=== PATIENT | female | born 1985 | race American Indian/Alaskan Native ===

== ENCOUNTER 2020-07-23 10:00 | Outpatient (CLI) | payer OTHER ==
[2020-07-23 09:47] LABS: Hemoglobin 9.5 gm/dl (10.1-14.3); Mean Corpuscular HGB Conc 31 % (30-34); Platelet Count 384 K/mm3 (140-440); Red Cell Distribution Width 18.5 % (13.2-15.2)
[2020-07-23 09:48] LABS: Mean Corpuscular Volume 65 fl (79-97)
[2020-07-23 11:29] VITALS: BP 132/84
--- NOTE | 2020-07-23 19:44 | Anesthesia Consultation ---
Anesthesia Consult and Med Hx Date of service: 07/24/20 - Airway Anesthetic Teeth Evaluation: Good ROM Head & Neck: Adequate Mental/Hyoid Distance: Adequate Mallampati Class: Class II Intubation Access Assessment: Probably Good - Pulmonary Exam CTA: Yes - Cardiac Exam Cardiac Exam: RRR - Pre-Operative Health Status ASA Pre-Surgery Classification: ASA2 Proposed Anesthetic Plan: General - Pulmonary Hx Smoking: Yes Hx Asthma: Yes (no recent exacerbations) Hx Respiratory Symptoms: No - Cardiovascular System Hx Hypertension: No Hx Heart Attack/AMI: No - Central Nervous System Hx Seizures: Yes (remote hx; no anti-seizure medications) Hx Psychiatric Problems: No - Gastrointestinal Hx Gastroesophageal Reflux Disease: No - Endocrine Hx Renal Disease: No Hx Liver Disease: No Hx Insulin Dependent Diabetes: No Hx Non-Insulin Dependent Diabetes: No Hx Thyroid Disease: No - Hematic Hx Anemia: Yes (remote hx transfusions) - Other Systems Hx Substance Use: Yes (THC) Hx Cancer: Yes (hx cervical ca) Hx Obesity: Yes (BMI 33) - Additional Comments Anesthesia Medical History Comments: No hx anesthetic complications.
[2020-07-24] MEDS ORDERED: GABAPENTIN 300 MG CAP PO NR (06:00)
[2020-07-24] MEDS ORDERED: MIDAZOLAM 2 MG/2 ML INJ IV NR (06:00)
[2020-07-24] MEDS ORDERED: LACTATED RINGERS 1,000 ML IV SCH (06:00)
[2020-07-24] MEDS ORDERED: CELECOXIB 200 MG CAP PO NR (06:00)
== END 2020-07-23 12:00 | disposition home or self-care (01) ==
LOC: LAB 10:00 → EDSTATUS 07-24 13:30
PROVIDERS: ATTEND Obstetrics & Gynecology
DX: Z01.818 Encounter for other preprocedural examination (principal); R10.2 Pelvic and perineal pain
CPT/HCPCS: 36415; 84703; 85027; U0003; J7120

== ENCOUNTER 2020-08-07 06:04 | Day surgery (SDC) | payer OTHER ==
[2020-08-07] MEDS ORDERED: LACTATED RINGERS 1,000 ML IV SCH (06:26)
[2020-08-07] MEDS ORDERED: BACTERIOSTATIC SODIUM CHLORIDE 0.9% 30 ML VIAL INFILTRATI ONE (06:34)
[2020-08-07] MEDS ORDERED: HYDROmorphone 1 MG/1 ML INJ IV PRN ×2 (07:16)
[2020-08-07] MEDS ORDERED: ONDANSETRON 4 MG/2 ML INJ IV PRN (07:16)
[2020-08-07] MEDS ORDERED: MAGNESIUM OXIDE 400 MG TAB PO ONE (07:17)
[2020-08-07] MEDS ORDERED: ACETAMINOPHEN 500 MG TAB PO ONE (07:17)
--- NOTE | 2020-08-07 07:18 | Anesthesia Day of Surgery ---
Anesthesia Day of Surgery - Day of Surgery Patient Examined: Yes Patient H&P Reviewed: Yes Patient is NPO: Yes
[2020-08-07] MEDS ORDERED: HYDROmorphone 1 MG/1 ML INJ ONE ×2 (07:46→08:31)
[2020-08-07] MEDS ORDERED: propofoL 200 MG/20 ML VIAL IV ONE (07:48)
[2020-08-07] MEDS ORDERED: ONDANSETRON 4 MG/2 ML INJ ONE (07:49)
[2020-08-07] MEDS ORDERED: NEOSTIGMINE 10MG/10 ML INJ MDV ONE (07:49)
[2020-08-07] MEDS ORDERED: GLYCOPYRROLATE 0.4 MG/2 ML INJ ONE (07:49)
[2020-08-07] MEDS ORDERED: dexAMETHasone 20 MG/5 ML VIAL ONE (07:49)
[2020-08-07] MEDS ORDERED: PHENYLEPHRINE/NS 1,000 MCG/10 ML SYRINGE (OR USE) IV ONE ×2 (07:49→07:50)
[2020-08-07] MEDS ORDERED: LIDOCAINE MPF (2%) 20 MG/1 ML VIAL 5 ML ONE (07:49)
[2020-08-07] MEDS ORDERED: SUCCINYLCHOLINE CHLORIDE 200 MG/10 ML INJ MDV ONE (07:49)
[2020-08-07] MEDS ORDERED: ROCURONIUM 50 MG/5 ML INJ IV ONE (07:49)
[2020-08-07] MEDS ORDERED: ceFAZolin/Water 2 GM/20 ML 2 GM/20 ML SYRINGE IV ONE (07:51)
[2020-08-07] MEDS ORDERED: MIDAZOLAM 2 MG/2 ML INJ IV NR (08:00)
[2020-08-07] MEDS ORDERED: ceFAZolin/STERILE WATER 2 GM/20 ML SYRINGE IV NR (08:00)
[2020-08-07] MEDS ORDERED: CELECOXIB 200 MG CAP PO NR (08:00)
[2020-08-07] MEDS ORDERED: GABAPENTIN 300 MG CAP PO NR (08:00)
--- NOTE | 2020-08-07 08:08 | Operative Report ---
Operative Report Operative Report: Preoperative diagnosis: Pelvic pain Postoperative diagnosis: Same Procedure: Diagnostic laparoscopy Surgeon: Dr. Wendy Masters Anesthesia: GET Complications: None EBL less than 50 mL IV fluids: 500 mL Urine output: 400 mL clear Drain: None Findings: 12-week size uterus, bilateral fallopian tubes that had been suture- ligated, bilateral ovaries within normal limits, no abdominal pelvic adhesions. There were no Falope-Rings identified. Procedure: Patient was consented in preop holding about risks benefits possible complications as well as alternatives to the procedure. After informed consent was obtained patient was taken to the operating room. She received excellent general endotracheal anesthesia and with no complication. She was then placed in the dorsal lithotomy position, prepped and draped in a sterile fashion. A timeout was verified, a Wan catheter was placed atraumatically. A speculum was placed in the vaginal vault, the parametria was noted to be pink with no masses lesions or nodularity. The cervix was identified, grasped with a single- tooth tenaculum, and an acorn uterine manipulator was placed atraumatically. Attention then turned to the abdomen. An umbilical incision was made with a scalpel, taken down to the fascia which was incised sharply atraumatically. 2 [id number] sutures were placed at the apex of the incision to allow for anchoring of the Pearson trocar. The Pearson trocar was then introduced into the abdomen atraumatically. Correct placement of the trocar was confirmed under direct visualization. The patient was placed in steep Trendelenburg. A second incision was made in the left lower quadrant, a 5 mm trocar was introduced atraumatically into the abdomen. An atraumatic grasper was placed in the 5 mm trocar port to allow for retraction and visualization. The uterus was noted to be approximately 12 weeks size, there were no abdominal pelvic adhesions or Falope-Rings identified. Both ovaries were normal, both fallopian tubes had been suture-ligated and what appears to be a modified Alfreda procedure. Intraoperative pictures were taken both for the permanent record and for the patient's own benefit in the outpatient setting. At the completion of the procedure both trochars were removed atraumatically under direct visualization. The fascia was closed with 0 Vicryl, the skin closed with Monocryl. Pressure dressings were applied at both incision sites. The uterine manipulator and speculum were removed from the cervix and the vagina respectively. The Wan catheter was removed. The patient was extubated and taken to the recovery area in stable condition. Her family was notified of her stable condition immediate ly following the completion of the procedure. There were no complications. EBL less than 50 mL. All sponge needle and instrument counts were correct x2. Escobar Masters MD
[2020-08-07] MEDS ORDERED: WATER FOR INJ Sterile (PF) 10 ML ONE (08:56)
[2020-08-07] MEDS ORDERED: SUGAMMADEX SODIUM 200 MG/2 ML VIAL IV ONE (08:56)
--- NOTE | 2020-08-07 09:41 | Post Anesthesia Evaluation ---
- Post Anesthesia Evaluation Patient Participated: Yes Airway Patent: Yes Stable Respiratory Function: Yes Nausea/Vomiting: No Temp > 96.8F: Yes Pain Manageable: Yes Adequeate Hydration: Yes Anesthesia Complications: No Block Receding Appropriately: Not Applicable Patient on Ventilator: No
[2020-08-07] MEDS ORDERED: oxyCODONE /ACETAMINOPHEN 5-325MG TAB PO ONE (10:47)
[2020-08-07 12:12] VITALS: BP 101/69
== END 2020-08-07 06:05 | disposition home or self-care (01) ==
LOC: OR 06:04
PROVIDERS: ATTEND Obstetrics & Gynecology
DX: R10.2 Pelvic and perineal pain (principal); Z20.828 Contact with and (suspected) exposure to other viral communicable diseases; F17.210 Nicotine dependence, cigarettes, uncomplicated; G43.909 Migraine, unspecified, not intractable, without status migrainosus; E66.9 Obesity, unspecified; Z79.899 Other long term (current) drug therapy; Z98.51 Tubal ligation status; Z72.89 Other problems related to lifestyle; Z98.890 Other specified postprocedural states; Z85.41 Personal history of malignant neoplasm of cervix uteri; Z68.33 Body mass index [BMI] 33.0-33.9, adult
CPT/HCPCS: 49320; 81025; J0330; J0690; J1100; J1170; J2250; J2370; J2405; J2704; J2710; J7120; U0003